=== PATIENT | female | born 1960 | race Caucasian/White ===

== ENCOUNTER 2016-10-22 07:27 | Emergency (ER) | payer BC ==
[2016-10-22 08:41] VITALS: BP 140/66
[2016-10-22] MEDS ORDERED: Albuterol/Ipratropium NEB.SOL* Albuterol 2.5 MG/Ipratropium 0.5 MG 3 ML INH ONE (09:04)
[2016-10-22] MEDS ORDERED: predniSONE TAB* 20 MG PO ONE (09:04)
--- NOTE | 2016-10-22 09:15 | UC ---
Respiratory Complaint HPI - HPI Summary HPI Summary: began with a head cold 1 week ago now is in her chest with harsh moist cough and SOB - History of Current Complaint Chief Complaint: UCRespiratory Stated Complaint: HEAD/CHEST CONGESTION Time Seen by Provider: 10/22/16 08:56 Hx Obtained From: Patient Hx Last Menstrual Period: Hysterectomy 10 years ago. ?: No Onset/Duration: Gradual Onset, Lasting Weeks - 1, Still Present, Worse Since - past couple of days Timing: Constant Severity Initially: Mild Severity Currently: Moderate Pain Intensity: 6 Pain Scale Used: 0-10 Numeric Character: Cough: Productive Aggravating Factors: Exertion, Deep Breaths, Recumbent Position Alleviating Factors: Nothing Associated Signs And Symptoms: Positive: Dyspnea, Wheezing, URI, Nasal Congestion, Sinus Discomfort - Allergies/Home Medications Allergies/Adverse Reactions: Allergies Allergy/AdvReac Type Severity Reaction Status Date / Time No Known Allergies Allergy Verified 10/05/15 13:38 Home Medications: Home Medications Aspirin [Aspirin 81 MG TAB] 81 mg PO DAILY 10/22/16 [History Confirmed 10/22/16] Losartan Potassium & Hydrochlo [Hyzaar 50/12.5 mg] 1 tab PO DAILY 10/22/16 [ History Confirmed 10/22/16] Pseudoephedrine-Guaifenesin [Mucinex D 60-600 mg] 10/22/16 [History] PMH/Surg Hx/FS Hx/Imm Hx Previously Healthy: Yes Cardiovascular History: Hypertension Other History Of: Negative For: HIV, Hepatitis B, Hepatitis C, Anticoagulant Therapy - Surgical History Surgical History: Yes Surgery Procedure, Year, and Place: hysterectomy 2003 - Family History Known Family History: Positive: None Negative: Renal Disease, Blood Disorder Family History: no reported cardiovascular issues in family lineage - Social History Occupation: Employed Full-time - TA for Special Needs at [employer] Alcohol Use: Rare Substance Use Type: None Smoking Status (MU): Current Every Day Smoker Type: Cigarettes Amount Used/How Often: 1/2 - 1 PPD Have You Smoked in the Last Year: Yes Cessation Counseling: Counseled 3+Min - 10 Min Review of Systems Constitutional: Negative Skin: Negative Eyes: Negative ENT: Nasal Discharge Respiratory: Shortness Of Breath, Cough Cardiovascular: Negative Gastrointestinal: Negative Genitourinary: Negative Motor: Negative Neurovascular: Negative Musculoskeletal: Negative Neurological: Negative Psychological: Negative, Anxious All Other Systems Reviewed And Are Negative: Yes Physical Exam Triage Information Reviewed: Yes Appearance: Ill-Appearing, Pain Distress - mild, Obese Vital Signs: Initial Vital Signs Temp 98.7 F 10/22/16 08:03 Pulse 89 10/22/16 08:03 Resp 16 10/22/16 08:03 BP 140/66 10/22/16 08:03 Pulse Ox 93 10/22/16 08:03 Vital Signs Reviewed: Yes Eye Exam: Normal Eyes: Positive: Conjunctiva Clear ENT Exam: Normal ENT: Positive: Normal ENT inspection, Hearing grossly normal, Pharynx normal, TMs normal. Negative: Nasal congestion, Nasal drainage, Tonsillar swelling, Tonsillar exudate, Trismus, Muffled/hoarse voice Dental Exam: Normal Neck exam: Normal Neck: Positive: Supple, Nontender, No Lymphadenopathy Respiratory Exam: Normal Respiratory: Positive: Chest non-tender, No accessory muscle use, Respiratory distress - mild, Decreased breath sounds, Wheezing Cardiovascular Exam: Normal Cardiovascular: Positive: RRR, No Murmur, Pulses Normal, Brisk Capillary Refill Musculoskeletal Exam: Normal Musculoskeletal: Positive: Strength Intact, ROM Intact, No Edema Neurological Exam: Normal Neurological: Positive: Alert, Muscle Tone Normal Psychological Exam: Normal Skin Exam: Normal UC Diagnostic Evaluation - Laboratory O2 Sat by Pulse Oximetry: 93 Re-Evaluation - Re-Evaluation First Eval Change: Improved - feels beeter decrease wheeze increase aeration--- Respiratory Course/Dx - Course Course Of Treatment: nicotine patches, MDi, prednisone, flonase, zithromax, nicotine cessation information, follow with pcp - Differential Dx/Diagnosis Differential Diagnosis/HQI/PQRI: Asthma, Bronchitis, Laryngitis, Lower Resp Infection, Sinusitis, Tuberculosis Provider Diagnoses: Bronchitis with bronchospasm, nicotine dependent Discharge - Discharge Plan Condition: Stable Disposition: HOME Prescriptions: Albuterol HFA INHALER* [Ventolin HFA Inhaler*] 2 puff INH Q6H PRN #1 mdi PRN Reason: cough,wheeze, sob Azithromycin TAB* [Zithromax TAB (Z-MATTHEW) 250 mg #6 tabs] 2 tab PO DAILY #1 matthew Fluticasone NASAL SPRAY 50MCG* [Flonase NASAL SPRAY 50MCG*] 2 spray BOTH NARES DAILY #1 btl Nicotine PATCH 14 MG/24 HR* 14 mg TRANSDERM DAILY #30 patch predniSONE TAB* [Deltasone TAB*] 10 mg PO DAILY #20 tab Patient Education Materials: Nicotine (Absorbed through the skin), How to Stop Smoking (ED), Acute Bronchitis (ED), Bronchospasm (ED), How to Use a Metered- Dose Inhaler and a Spacer (ED) Forms: *Work Release Referrals: Anna Posey MD [Primary Care Provider] - 2 Weeks
[2016-10-22] MEDS ORDERED: Albuterol HFA INHALER* 8 gm MDI INH ONE ×2 (09:40→09:41)
== END 2016-10-22 10:25 | disposition home or self-care (01) ==
LOC: UCEAST 07:27
DX: J20.9 Acute bronchitis, unspecified (principal); F17.210 Nicotine dependence, cigarettes, uncomplicated; Z71.6 Tobacco abuse counseling
CPT/HCPCS: 99213; A9270-GY; G0463; J7512

== ENCOUNTER 2017-02-18 07:30 | Emergency (ER) | payer BC ==
[2017-02-18 07:46] VITALS: BP 125/58
[2017-02-18] MEDS ORDERED: DOXYcycline CAP(*) 100 MG PO ONE (08:28)
--- NOTE | 2017-02-18 08:37 | UC ---
Skin Complaint HPI - HPI Summary HPI Summary: Patient presents s/p tick bite that was removed last night. She states is was on her about 24 hours and was not engorged with blood. She think part of it may still be under her skin so she comes in for evaluation. She denies any fever, chill, sweats, joint pain, or rashes. - History of Current Complaint Chief Complaint: UCSkin Time Seen by Provider: 02/18/17 08:22 Stated Complaint: TICK BITE Hx Obtained From: Patient Hx Last Menstrual Period: Hysterectomy 10 years ago. Onset/Duration: Sudden Onset, Lasting Days Skin Exposure Onset/Duration: Days Ago Timing: Constant Onset Severity: Mild Current Severity: Mild Location: Discrete, Other - right side Character: Redness Aggravating Factor(s): Nothing Alleviating Factor(s): Nothing Associated Signs & Symptoms: Positive: Negative - Allergy/Home Medications Allergies/Adverse Reactions: Allergies Allergy/AdvReac Type Severity Reaction Status Date / Time No Known Allergies Allergy Verified 02/18/17 07:41 Review of Systems Constitutional: Negative Skin: Negative, Other - 1cm localized circular red area on right side. Eyes: Negative ENT: Negative Respiratory: Negative Cardiovascular: Negative Gastrointestinal: Negative Genitourinary: Negative Motor: Negative Neurovascular: Negative Musculoskeletal: Negative Neurological: Negative Psychological: Negative All Other Systems Reviewed And Are Negative: Yes PMH/Surg Hx/FS Hx/Imm Hx Previously Healthy: Yes Other History Of: Negative For: HIV, Hepatitis B, Hepatitis C, Anticoagulant Therapy - Surgical History Surgical History: Yes Surgery Procedure, Year, and Place: hysterectomy 2003 - Family History Known Family History: Positive: None Negative: Renal Disease, Blood Disorder Family History: no reported cardiovascular issues in family lineage - Social History Occupation: Employed Full-time Lives: Alone Alcohol Use: Rare Substance Use Type: None Smoking Status (MU): Heavy Every Day Tobacco Smoker Type: Cigarettes Amount Used/How Often: almost 1 ppd Have You Smoked in the Last Year: Yes Physical Exam Triage Information Reviewed: Yes Appearance: Well-Appearing Vital Signs: Initial Vital Signs Temp 97.3 F 02/18/17 07:42 Pulse 87 02/18/17 07:42 Resp 16 02/18/17 07:42 BP 125/58 02/18/17 07:42 Pulse Ox 99 02/18/17 07:42 Vital Signs Reviewed: Yes Eye Exam: Normal ENT Exam: Normal Dental Exam: Normal Neck exam: Normal Neck: Positive: 1 Respiratory Exam: Normal Cardiovascular Exam: Normal Musculoskeletal Exam: Normal Skin Exam: Normal - 1 cm circular red area on right side. no erythma migrans., Other Course/Dx - Course Course Of Treatment: Patient removed tick from right side that was present less than 24 hours, with no signs of lymes disease at this time. She has a localized reaction from the actual bite, she declines lyme titer today. She was treated with doxycycline 200 mg once and discharged. If she develops any other symtpoms she will follow up for lyme titer. - Differential Diagnoses - Skin Complaint Differential Diagnoses: Other - tick bite - Diagnoses Provider Diagnoses: tick bite Discharge - Discharge Plan Condition: Stable Disposition: HOME Patient Education Materials: Tick Bite (ED) Referrals: Anna Posey MD [Primary Care Provider] - Additional Instructions: Patient was treated with Doxycycline 200 mg x one. If she develops any other symptoms such as rash, joint pain, fever or sweats she will then be re- evaluated.
== END 2017-02-18 08:38 | disposition home or self-care (01) ==
LOC: UCEAST 07:30
DX: T14.8XXA Other injury of unspecified body region, initial encounter (principal); W57.XXXA Bitten or stung by nonvenomous insect and other nonvenomous arthropods, initial encounter; Y92.9 Unspecified place or not applicable; F17.210 Nicotine dependence, cigarettes, uncomplicated
CPT/HCPCS: 99212; A9270-GY; G0463

== ENCOUNTER 2023-05-30 08:29 | Observation (INO) ==
[~2023-05-30 08:29] MED LIST: Buffered Lidocaine 1% SYRIN 1 ml INTRADERM ONE; Famotidine IV 10 MG/ML 2 ml VIAL (20 mg) IV ONE; Lactated Ringers 1000 ml BAG 1,000 ML IV SCH; Midazolam 2 mg/2 ml VIAL 1 mg/ml 2 ml VIAL (2 mg) ONE; fentaNYL 100 mcg/2 ml 50 MCG/ML VIAL ONE
[2023-05-30] MEDS ORDERED: Propofol 10 MG/ML 20 ML BTL ONE ×2 (08:42→13:16)
[2023-05-30 09:06] LABS: Rapid COVID-19 Molecular Undetected (Undetected)
[2023-05-30] MEDS ORDERED: Tranexamic Acid 1 GM/100ML BAG 2,000 MG/200 ML BAG IV ONE (09:12)
[2023-05-30] MEDS ORDERED: Famotidine IV 10 MG/ML 2 ml VIAL (20 mg) ONE (09:12)
[2023-05-30] MEDS ORDERED: ceFAZolin 2 GM PREMIX 2 GM/50 ML BAG ONE (09:12)
[2023-05-30] MEDS ORDERED: Buffered Lidocaine 1% SYRIN 1 ml ONE (09:33)
[2023-05-30] MEDS ORDERED: ROPIVACAINE 5 MG/ML 30 ML BTL (0.5%) ONE (10:37)
[2023-05-30] MEDS ORDERED: Midazolam 2 mg/2 ml VIAL 1 mg/ml 2 ml VIAL (2 mg) ONE (10:54)
[2023-05-30] MEDS ORDERED: Ondansetron 4 mg VIAL 2 MG/ML 2 ml VIAL IV PRN ×2 (11:16→13:51)
[2023-05-30] MEDS ORDERED: Naloxone 0.4 mg VIAL 0.4 mg/ml 1 ml VIAL IV PRN (11:16)
[2023-05-30] MEDS ORDERED: fentaNYL 100 mcg/2 ml 50 MCG/ML VIAL IV PRN (11:16)
[2023-05-30] MEDS ORDERED: HYDROmorphone 1 MG/1 ML SYRINGE IV PRN (11:16)
[2023-05-30] MEDS ORDERED: Acetaminophen IV 1 GM/100ML 1,000 MG/100 ML BAG IV ONE (11:33)
[2023-05-30] MEDS ORDERED: Bupivacaine-MPF SPINAL 7.5 MG/ML - 2ML AMP ONE (11:50)
[2023-05-30] MEDS ORDERED: Phenylephrine IV 10 MG/ML 1 ml VIAL ONE (11:55)
[2023-05-30] MEDS ORDERED: KETAMINE HCL 10 MG/ML 20 ml VIAL (200 MG) ONE (13:09)
[2023-05-30] MEDS ORDERED: Lactulose 30 ml UDC PO PRN (13:51)
[2023-05-30] MEDS ORDERED: Magnesium Hydroxide LIQ 30 ML UDC PO PRN (13:51)
[2023-05-30] MEDS ORDERED: Morphine 2 MG/ML SYRINGE IV PRN (13:51)
[2023-05-30] MEDS ORDERED: Ondansetron ODT 4 mg TAB 4 MG TAB PO PRN (13:51)
[2023-05-30] MEDS: Lactated Ringers 1000 ml BAG 1,000 ML IV SCH (15:58)
[2023-05-30] MEDS ORDERED: Albuterol HFA INHALER 8 gm MDI INH PRN (16:54)
[2023-05-30] MEDS: Magnesium Hydroxide LIQ 30 ML UDC PO SCH (20:09)
[2023-05-30] MEDS: ceFAZolin 1 GM ADVAN 1 GM in NS 0.9% 50 ML 50 ML IVPB SCH (20:15)
[2023-05-31] MEDS: Lactated Ringers 1000 ml BAG 1,000 ML IV SCH (03:05)
[2023-05-31] MEDS: ceFAZolin 1 GM ADVAN 1 GM in NS 0.9% 50 ML 50 ML IVPB SCH ×2 (04:16→11:05)
[2023-05-31 06:02] LABS: Platelet Count 294 10^3/uL (150-450)
[2023-05-31 06:21] LABS: Hematocrit 31.4 % (35-45); Hemoglobin 10.8 g/dL (11.5-14.3); Mean Platelet Volume 8.5 fL (7.5-11.2)
[2023-05-31 06:27] LABS: Calcium 7.9 mg/dL (8.6-10.3); Creatinine, Serum 0.83 mg/dL (0.51-0.95); Potassium 3.6 mmol/L (3.5-5.0); eGFR CKD-EPI 80.7 (>60)
[2023-05-31] MEDS: Magnesium Hydroxide LIQ 30 ML UDC PO SCH (08:41)
[2023-05-31] MEDS ORDERED: Vitamin THERAPEUTIC TAB PO SCH (09:00)
[2023-05-31 09:52] VITALS: BP 126/70
== END 2023-05-31 13:26 | disposition home or self-care (01) ==
LOC: AA 08:29 → INTOOBSV 08:29 → SSU 15:25
PROVIDERS: ADMIT Orthopaedic Surgery Adult Reconstructive Orthopaedic Surgery; ATTEND Orthopaedic Surgery Adult Reconstructive Orthopaedic Surgery